=== PATIENT | female | born 1995 | race Caucasian/White ===

== ENCOUNTER 2019-11-08 04:44 | Inpatient (IN) ==
[2019-11-08] MEDS ORDERED: OXYTOCIN 30 UNITS/500 ML BAG IV PRN ×2 (05:35→09:34)
[2019-11-08 05:55] LABS: Hematocrit (blood only) 34.6 % (37-47); Mean Corpuscular Volume 95.1 fL (80-100); Mean Platelet Volume 10.1 fL (7.4-10.4); Platelet Count 174 K/uL (130-400); RDW Coefficient of Variation 13.2 % (11.5-14.5); RDW Standard Deviation 45.9 fL (36.4-46.3); Red Blood Count 3.64 M/uL (4.2-5.4); White Blood Count 10.48 K/uL (4.8-10.8)
[2019-11-08 06:01] LABS: Mean Corpuscular Hgb Conc 34.7 g/dL (32-36)
--- NOTE | 2019-11-08 08:10 | History & Physical Report ---
Date of Service November 08, 2019 Assessment & Plan (1) Late care affecting : (2) PROM w/onset labor within 24 hours rupture in 3rd trimester: pt has been admitted. will allow to develop own labor pattern but aware of possible need for pitocin induction. aware that she is . aware that Dr. Daniels will be assuming care shortly. ts categ 1. Admission and Anticipated Discharge Date Admission Date: November 08, 2019 History of Present Illness Chief Complaint: water broke at 3am today Primary Care Provider: NO PCP 23yo at 36+wks ega presents to L&D with cc as noted. Currently reporting some ctx that are getting more painful. No vb. +FM. cont leak clear fluid GBS just resulted and negative PNC complicated by incomplete heart views--> declined followup PNL RH pos, RI, GBS neg All Active Problems (Updated 07/10/19 @ 00:04 by Kurt Gonzalez) Late care affecting Encounter for anatomic survey Supervision of normal first Allergies Allergy/AdvReac Type Severity Reaction Status Date / Time No Known Drug Allergies Allergy Verified 11/06/19 11:35 Home Medications Home Medications Medication Instructions Recorded Confirmed Type 1 tab PO DAILY 11/08/19 11/08/19 History Patient History Social History (Updated 06/13/19 @ 13:16 by Porsha Regalado) Preferred Language: Angolan Communication Ability: Effective [employer] Supervisor Required: No Beliefs That Will Affect Care: None marital status: marital status details: Dimas (19) Current Living Situation: Spouse Current Living Situation Comment: lives with spouse, 1 dog current occupational status: employed current occupation: [employer] Other Information That Helps Us Care for You: No Feels Safe at Home: Yes Safety Concerns: Feels Safe At This Time Smoking Status: Never smoker Do You Dip or Chew Tobacco: No ; Second Hand Exposure: No ; Hx Alcohol Use: No Hx Substance Use: No Review of Systems see hpi Physical Exam Constitutional: WD/WN, vitals as above Respiratory: normal respiratory effort, lungs clear to auscultation Cardiovascular: Rate/Rhythm: regular rate and regular rhythm Gastrointestinal (Abdomen): soft gravid nt Musculoskeletal: no edema nontender calves Neurologic: grossly normal Psychiatric: A+Ox3, euthymic affect Genitourinary: OB Exam Abdomen: + estimated weight (6-7#) Manual OB Exam: + cervical dilation (1+ per nurse) OB Exam Monitor Tracing: + external FHT monitor used (135 mod variability), + external uterine monitor used (q5), + category I and + normal FHT variability Results & Data ([facility]) Vital Signs (Past 12 Hours) Vital Signs Temp Pulse Resp BP 11/08/19 07:10 98.1 F 18 11/08/19 07:07 90 131/77 11/08/19 05:01 97.5 F L 20 11/08/19 04:59 87 130/80 Coding Level of Care Code None Diagnoses Late care affecting O09.30 PROM w/onset labor within 24 hours rupture in 3rd trimester O42.013
[2019-11-08] MEDS: LACTATED RINGER'S 1,000 ML IV PRN ×3 (10:24→22:20)
--- NOTE | 2019-11-08 10:26 | Labor Progress Brief Note ---
Date of Service November 08, 2019 Subjective Reason For Note: Routine Evaluation Assessment & Plan Admission and Anticipated Discharge Date Admission Date: November 08, 2019 Physical Exam Genitourinary: Manual OB Exam: + cervical dilation (1.5), + cervical effacement 70%, + station -1 and + amniotic fluid clear OB Exam Monitor Tracing: + external FHT monitor used, + external uterine monitor used and + category I Results & Data ([facility]) Vital Signs (Past 12 Hours) Vital Signs Temp Pulse Resp BP 11/08/19 09:00 37 C 11/08/19 07:10 36.7 C 18 11/08/19 07:07 90 131/77 11/08/19 05:01 36.4 C L 20 11/08/19 04:59 87 130/80 Supervising Physician Co-Signing Physician Notes 23yo G1 PPROM 1. Fetus: Cat 1 2. Labor: Unchanged. Recommended Pitocin which she is agreeable too 3. GBS negative 4. Vitals: wnl Coding Level of Care Code None
[2019-11-08] MEDS ORDERED: fentaNYL citrate 100 MCG/2 ML VIAL ONE (20:33)
[2019-11-08] MEDS ORDERED: ePHEDrine sulfate 50 MG/ML AMP ONE (20:33)
[2019-11-08] MEDS ORDERED: BUPIVACAINE 0.25% 30 ML VIAL ONE (20:33)
[2019-11-08] MEDS ORDERED: fentaNYL 2MCG/ML ROPIV 1.25MG/ML 100 ML BAG EPI ONE (20:33)
--- NOTE | 2019-11-08 21:02 | Anesthesiology Consultation ---
Date of Service November 08, 2019 Assessment & Plan (1) Encounter for pre-operative examination: Chart Review Chart Review: Acceptable Risk for Labor Epidural Consults Requested none ASA ASA2 Proposed Anesthesia Anesthesia Type: Labor Epidural Risk / Benefits Reviewed With: PT / POA / Parent / Guardian, Accepts Plan and Informed Consent Obtained History Height/Weight Height: 5 ft 9 in Weight: 82.554 kg Allergies Allergy/AdvReac Type Severity Reaction Status Date / Time No Known Drug Allergies Allergy Verified 11/06/19 11:35 Medications Home Medications Medication Instructions Recorded Confirmed Last Taken 1 tab PO DAILY 11/08/19 11/08/19 1 Day Ago ~11/07/19 Active Medications Generic Name Dose Route Start Last Admin Trade Name Freq PRN Reason Stop Dose Admin Lactated Ringer's 1,000 mls @ 125 mls/hr 11/08/19 05:35 11/08/19 20:40 Lr IV 11/10/19 05:34 999 mls/hr .Q8H PRN Infusion L&D Protocol Protocol Oxytocin 30 units in 500 mls @ 12 mls/hr 11/08/19 09:34 11/08/19 14:30 Pitocin IV 11/10/19 09:33 0.72 units/hr .Q24H PRN 12 mls/hr Labor Induction/Augmentation Titration Protocol 0.72 UNITS/HR Exercise / Class Metabolic Activity II 4-5 Yardwork/Stairs/Walk up hill Past Family History Family History Aunt Breast cancer Brother Leukemia Past Surgical History Surgical History H/O oral surgery Past Anesthesia History No Hx of Anesthesia Complications and No Family Hx of Anesthesia Complications History of PONV No Hx of PONV and No Hx of Motion Sickness Social History Smoking Status: Never smoker Do You Dip or Chew Tobacco: No Hx Alcohol Use: No Hx Substance Use: No Physical Exam Vital Signs Last Vital Signs Temp 98.1 F 11/08/19 19:43 Pulse 73 11/08/19 19:43 Resp 20 11/08/19 20:30 BP 117/55 L 11/08/19 19:43 ENMT Mouth: no dentition abnormality Thyromental Distance: > or= 3.5 Finger Breadths Mallampati Class: II Neck normal visual inspection Respiratory normal respiratory effort Auscultation: lungs clear to auscultation bilaterally Cardiovascular Rate/Rhythm: regular rate and regular rhythm Testing Laboratory Results 11/08/19 05:44
[2019-11-08] MEDS ORDERED: ePHEDrine sulfate 50 MG/ML AMP IV PRN (21:23)
[2019-11-08] MEDS ORDERED: fentaNYL 2MCG/ML ROPIV 1.25MG/ML 100 ML BAG EPI PRN (21:23)
[2019-11-08] MEDS ORDERED: ONDANSETRON INJ 2 MG/ML 2 ML VIAL IV PRN (21:23)
[2019-11-08] MEDS ORDERED: NALOXONE HCL 0.4 MG/1 ML VIAL/CARP IV PRN (21:23)
[2019-11-08] MEDS ORDERED: NALOXONE HCL 1 MG in SODIUM CHLORIDE 0.9% 1000ML 1,000 ML IV PRN (21:23)
[2019-11-08] MEDS ORDERED: DiphenhydrAMINE HCL 50 MG/ML VIAL IV PRN (21:23)
[2019-11-08] MEDS ORDERED: NALBUPHINE HCL INJ 10 MG/ML AMP IV PRN (21:23)
[2019-11-09] MEDS ORDERED: DIPHTHERIA/TETANUS/PERTUSSIS 0.5 ML SYR/VIAL IM ONE (03:07)
[2019-11-09] MEDS ORDERED: SUPERCREAM 0.870% 15 GM JAR EXT PRN (03:07)
[2019-11-09] MEDS ORDERED: HYDROCORTISONE ACETATE 25 MG SUPP PR PRN (03:07)
[2019-11-09] MEDS ORDERED: bisacodyL 10 MG SUPP PR PRN (03:07)
[2019-11-09] MEDS ORDERED: OXYTOCIN 30 UNITS/500 ML BAG IV PRN (03:07)
[2019-11-09] MEDS ORDERED: BENZOCAINE 20% AER SPR 82.5 GM CAN EXT PRN (03:07)
[2019-11-09] MEDS ORDERED: ACETAMINOPHEN 325 MG TAB PO PRN (03:07)
--- NOTE | 2019-11-09 06:55 | Anesthesia Procedure Note ---
Date of Service November 09, 2019 Anesthesia Post Epidural Note Vital Signs Vital Signs: Temp Pulse Resp BP Pulse Ox 36.9 C 100 H 18 121/66 100 11/09/19 01:47 11/09/19 05:03 11/09/19 05:03 11/09/19 05:03 11/09/19 03:05 Pain Intensity Abdomen: Pain Intensity: 0 Notes Mental Status: alert / awake / arousable and participated in evaluation Patient Amnestic to Procedure: No Nausea / Vomiting: adequately controlled Pain: adequately controlled Airway Patency, RR, SpO2: stable & adequate BP & HR: stable & adequate Hydration State: stable & adequate Neuraxial Anesthesia: was administered and sensory block is resolving Anesthetic Complications: no major complications apparent and Pt Satisfied with anesthetic care Epidural: Removed without complications and With tip intact
[2019-11-09] MEDS ORDERED: PRENATAL VITAMIN 1 TAB PO SCH (08:00)
--- NOTE | 2019-11-09 09:14 | Delivery Summary ---
DATE OF OPERATION: 11/09/2019 PROCEDURE: Normal spontaneous vaginal delivery with second-degree perineal laceration repair and periurethral laceration repair. SURGEON: Dr. Parminder Daniels. PREOPERATIVE DIAGNOSES: 1. Single intrauterine at 36 weeks 3 days gestational age. 2. Premature rupture of membranes. POSTOPERATIVE DIAGNOSES: 1. Single intrauterine at 36 weeks 3 days gestational age. 2. Premature rupture of membranes. 3. Status post delivery. ESTIMATED BLOOD LOSS: 400 mL. DRAINS: Straight cath at the completion of the case. COMPLICATIONS: None. URINE OUTPUT: 1000 mL via straight cath at the completion of the case after delivery of placenta. FINDINGS: Viable female with weight pending, Apgars of 8 and 9 at 1 and 5 minutes respectively. INDICATIONS: The patient is a 23-year-old G1, P0, presented to Labor and Delivery with leakage of fluid, was confirmed for rupture at 36 weeks 3 days. The patient desired no intervention at that time and this allowed approximately 6 hours from the time of rupture for spontaneous labor to start. At the 6th hour period, the patient was checked and noted to be unchanged and was started on oxytocin per regular protocol. She progressed in labor slowly from that point on. She later received epidural for anesthesia and progressed to complete-complete +2 station, at which time she did feel the urge to push. DESCRIPTION OF PROCEDURE: The patient progressed to 10 cm dilated, 100% effaced, +2 station, pushed over intact perineum with epidural anesthesia and delivered a viable female infant with weight and Apgars as noted above. Head of the delivered in BHAVNA position, rest to left transverse. No nuchal cord was noted. Body and shoulders quickly followed. was noted to be vigorous soon after delivery. One minute delayed cord clamping was initiated. Cord was then double clamped and cut. remained on maternal abdomen. Cord blood was obtained. Attention was turned to deliver the placenta, which was delivered intact, 3-vessel cord, gentle cord traction. On inspection of the perineum, vagina and cervix, there was noted a second degree perineal laceration which was repaired with 3-0 Vicryl in a traditional crown stitch. There was also noted to be a periurethral laceration which was repaired with 3-0 Vicryl and interrupted stitch. Needle, sponge and instrument counts were correct at the completion of the case with mother and stable in the immediate post delivery period. I attest to the content of the Intraoperative Record and any orders documented therein. Any exception s are noted below.
[2019-11-09] MEDS: MULTIVITAMIN PO SCH ×2 (09:48→18:53)
[2019-11-09] MEDS: [UNRECOGNIZED DRUG - OTHER] PO SCH ×2 (09:49→18:52)
[2019-11-09] MEDS: [UNRECOGNIZED DRUG - OTHER] PO SCH ×2 (09:49→18:53)
[2019-11-09] MEDS: DOCUSATE SODIUM 100 MG CAP PO SCH ×2 (12:57→20:54)
[2019-11-09] MEDS: IBUPROFEN 600 MG TAB PO PRN ×2 (16:14→20:54)
[2019-11-10] MEDS: IBUPROFEN 600 MG TAB PO PRN ×5 (03:37→23:43)
[2019-11-10 06:17] LABS: Hematocrit (blood only) 31.5 % (37-47); Hemoglobin 10.6 g/dL (12.0-16.0)
--- NOTE | 2019-11-10 07:52 | Obstetrical Progress Note ---
Date of Service November 10, 2019 Assessment & Plan (1) PROM w/onset labor within 24 hours rupture in 3rd trimester: - doing well - pt desires d/c - discussed Peds may not be comfortable - pt adamantly wants d/c - instructions given - f/u in 6 weeks Subjective Ambulation: ambulating normally Voiding: no voiding problems Feeding Type:: breast feeding Physical Exam Constitutional WD/WN, vitals as above Gastrointestinal (Abdomen) Fundus firm below umbilicus Musculoskeletal No deep calf tenderness Results & Data ([facility]) Vital Signs (Past 12 Hours) Vital Signs Temp Pulse Resp BP 11/09/19 23:15 98.1 F 85 18 122/68 11/09/19 20:00 98.2 F 76 16 108/72
[2019-11-10] MEDS: DOCUSATE SODIUM 100 MG CAP PO SCH ×2 (08:31→20:02)
[2019-11-10] MEDS: MULTIVITAMIN PO SCH ×2 (08:31→17:40)
[2019-11-10] MEDS: [UNRECOGNIZED DRUG - OTHER] PO SCH ×2 (08:31→17:41)
[2019-11-10] MEDS: [UNRECOGNIZED DRUG - OTHER] PO SCH ×2 (08:31→17:41)
[2019-11-10] MEDS ORDERED: bisacodyL 5 MG TABEC PO SCH (20:00)
[2019-11-11 00:05] VITALS: TEMP 98.4; O2SAT 97
[2019-11-11] MEDS: IBUPROFEN 600 MG TAB PO PRN ×2 (05:02→09:07)
--- NOTE | 2019-11-11 07:08 | Obstetrical Progress Note ---
Date of Service November 11, 2019 Assessment & Plan (1) PROM w/onset labor within 24 hours rupture in 3rd trimester: PPD#2 doing well, would like to go home. DC instructions discussed, followup 6w in office. Subjective Ambulation: ambulating normally Voiding: no voiding problems Diet Tolerance:: regular diet Lochia:: Moderate PPD#2 doing well. Review of Systems All systems reviewed & are unremarkable except as noted in HPI & below Physical Exam Constitutional WD/WN, vitals as above no acute distress Respiratory normal respiratory effort Cardiovascular Rate/Rhythm: regular rate and regular rhythm Gastrointestinal (Abdomen) Inspection/Auscultation: abdomen normal to inspection; abdomen not distended Percussion/Palpation: abdomen soft Genitourinary OB Exam Abdomen: + fundal height Fundus: + firm; not tender Results & Data ([facility]) Vital Signs (Past 12 Hours) Vital Signs Temp Pulse Pulse Resp BP BP Pulse Ox 11/10/19 23:30 36.9 C 79 20 119/70 97 11/10/19 20:00 36.6 C 80 18 123/87
[2019-11-11 08:55] VITALS: BP 123/87; PULSE 80
[2019-11-11] MEDS: DOCUSATE SODIUM 100 MG CAP PO SCH (09:08)
[2019-11-11] MEDS: [UNRECOGNIZED DRUG - OTHER] PO SCH (09:08)
[2019-11-11] MEDS: MULTIVITAMIN PO SCH (09:09)
[2019-11-11] MEDS: [UNRECOGNIZED DRUG - OTHER] PO SCH (09:09)
== END 2019-11-11 10:30 | disposition home or self-care (01) | DRG 807 ==
LOC: 4S1 04:44 → 4S2 11-09 07:06
DX: O70.1 Second degree perineal laceration during delivery; O42.919 Preterm premature rupture of membranes, unspecified as to length of time between rupture and onset of labor, unspecified trimester; Z37.0 Single live birth; Z3A.36 36 weeks gestation of pregnancy